=== PATIENT | male | born 1935 | race Caucasian/White ===

== ENCOUNTER → 2017-07-18 | Outpatient (CLI) | payer MEDICARE ==
--- NOTE | 2017-07-19 16:07 | Diagnostic Imaging Report ---
Examination: MRI SPINE LUMBAR WITHOUT CONTRAST History: Low back pain with leg weakness for the past year. Comparison studies: None Technique: Sagittal, coronal and axial T2 , sagittal T1 and STIR; axial spin density oblique. Findings: Number of lumbar vertebral bodies: Five. Alignment: Straightening of normal lordosis. No scoliosis. Soft tissues: No T2 hyperintense inflammatory changes. Posterior paraspinal soft tissues and muscles: No abnormality. Lower thoracic cord: Normal in signal and morphology. The tip of the conus is at T12. Cauda equina: No masses. No arachnoiditis. Vertebrae: No fractures, infection or neoplasm. Degenerative changes: T12-L1: Asymmetric to the left disc bulge. No foraminal or canal stenosis. L1-L2: Mild diffuse bulge and mild ligamentum flavum thickening. No foraminal or canal stenosis. L2-L3: Mild diffuse disc bulge and mild facet arthropathy. No foraminal or canal stenosis. L3-L4: Diffuse disc bulge and mild facet arthropathy result in moderate bilateral neural foraminal narrowing and mild canal stenosis. L4-L5: Diffuse disc bulge, mild bilateral facet arthropathy and mild ligamentum flavum thickening result in mild bilateral neural foraminal narrowing. No canal stenosis. L5-S1: Diffuse disc bulge and mild bilateral facet arthropathy result in mild bilateral neural foraminal narrowing. No canal stenosis. IMPRESSION: 1. 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 2. Moderate bilateral neural foraminal narrowing at L3-L4. Signed by: Dr. Cassie Ames M.D. on 07/19/2017 4:03 PM
== END ==
LOC: MRI 09:08
PROVIDERS: ATTEND Family Medicine
DX: M54.5 Low back pain (principal)
CPT/HCPCS: 72148

== ENCOUNTER → 2017-08-14 | Day surgery (SDC) | payer MEDICARE ==
[2017-08-12 11:50] LABS: BASOPHILS % 0.3 % (0.0-1.0); EOSINOPHILS # (AUTO) 0.1 (0.0-0.4); EOSINOPHILS % 1.5 % (0.0-6.0); HEMATOCRIT 28.9 % (38.2-49.6); HEMOGLOBIN 9.1 g/dL (14.0-18.0); LYMPHOCYTES # (AUTO) 1.3 (1.0-3.2); LYMPHOCYTES % 19.9 % (18.0-39.1); MEAN CORPUSCULAR HEMOGLOBIN 26.3 pg (28-32); MEAN CORPUSCULAR HGB CONC 31.5 g/dL (31-35); MEAN CORPUSCULAR VOLUME 83.5 fL (81-99); MONOCYTES # (AUTO) 0.7 (0.2-0.8); MONOCYTES % 11.2 % (4.4-11.3); NEUTROPHILS # (AUTO) 4.4 (2.1-6.9); NEUTROPHILS % 66.8 % (38.7-80.0); PLATELET COUNT 218 x10e3/uL (140-360); RED BLOOD COUNT 3.46 x10e6/uL (4.3-5.7); RED CELL DISTRIBUTION WIDTH 19.8 % (11.7-14.4)
[~2017-08-14] MED LIST: AMITIZA24 MCG PO; DOXAZOSIN MESYLA2 MG PO; INHALER INH; LEVOTHYROXINE112 MCG PO; LIDOCAINE HCL 2% LOCAL INJ 5 ML SDV VIAL INJ ONE; NEXIUM40 MG PO; NORCO 10-325 T1 EACH PO; PROPOFOL IV EMULSION 10 MG/ML 20 ML VIAL ONE; SERTRALINE HCL50 MG PO; SPIRIVA18 MCG INH; TIMOPTIC 0.5%1 EACH OP/OT; TRAVATAN Z5 ML OD; ZOFRAN ODT4 MG PO
== END | disposition home or self-care (01) ==
LOC: OR 09:47
PROVIDERS: ATTEND Internal Medicine Gastroenterology
DX: D64.9 Anemia, unspecified (principal); Z85.038 Personal history of other malignant neoplasm of large intestine; K31.819 Angiodysplasia of stomach and duodenum without bleeding; K44.9 Diaphragmatic hernia without obstruction or gangrene; K21.9 Gastro-esophageal reflux disease without esophagitis; K59.00 Constipation, unspecified; I10 Essential (primary) hypertension; J44.9 Chronic obstructive pulmonary disease, unspecified; E03.9 Hypothyroidism, unspecified; H40.9 Unspecified glaucoma; M06.9 Rheumatoid arthritis, unspecified; F32.9 Major depressive disorder, single episode, unspecified; Z01.810 Encounter for preprocedural cardiovascular examination; Z01.812 Encounter for preprocedural laboratory examination; Z85.46 Personal history of malignant neoplasm of prostate; Z85.828 Personal history of other malignant neoplasm of skin; Z87.891 Personal history of nicotine dependence; Z83.71 Family history of colonic polyps
CPT/HCPCS: 36415; 43255; 85025; 93005; J2001; 43270

== ENCOUNTER → 2017-10-02 | Day surgery (SDC) | payer MEDICARE ==
[~2017-10-02] MED LIST changes: +FENTANYL CITRATE/PF 100MCG/2 ML INJ ONE; +PHENERGAN25 MG/1 M1 PO
[2017-10-02 09:33] LABS: BASOPHILS # (AUTO) 0.1 (0.0-0.1); BASOPHILS % 0.8 % (0.0-1.0); EOSINOPHILS # (AUTO) 0.2 (0.0-0.4); HEMATOCRIT 33.2 % (38.2-49.6); HEMOGLOBIN 10.2 g/dL (14.0-18.0); LYMPHOCYTES # (AUTO) 1.9 (1.0-3.2); LYMPHOCYTES % 29.1 % (18.0-39.1); MEAN CORPUSCULAR HEMOGLOBIN 25.4 pg (28-32); MEAN CORPUSCULAR HGB CONC 30.7 g/dL (31-35); MEAN CORPUSCULAR VOLUME 82.8 fL (81-99); MONOCYTES # (AUTO) 0.5 (0.2-0.8); NEUTROPHILS # (AUTO) 3.9 (2.1-6.9); NEUTROPHILS % 58.9 % (38.7-80.0); PLATELET COUNT 298 x10e3/uL (140-360); RED BLOOD COUNT 4.01 x10e6/uL (4.3-5.7); RED CELL DISTRIBUTION WIDTH 18.2 % (11.7-14.4)
--- OUTSIDE RECORDS SUMMARY | 2017-10-02 09:45 | XMS REPORT ---
[facility] Address Unknown Phone Unavailable Care Team Providers Care [employer] Supervisor Name Role Phone AB MARK Unavailable Unavailable Problems This patient has no known problems. Allergies, Adverse Reactions, Alerts This patient has no known allergies or adverse reactions. Medications This patient has no known medications. Results Test Description Test Time Test Comments Text Results Atomic Results Result Comments MRI SPINE LUMBAR WO [place] [address] Patient Name: Luz Elena KENNY MR #: [id number] : 1935 Age/Sex: 82/M Req # : [id number] Adm Physician: Ordered by: BA MARK MD Report #: [id number] Location: MRI Room/Bed: Procedure: [id number] MRI/MRI SPINE LUMBAR WO Exam Date: 07/18/17 Exam Time: 0950 REPORT STATUS: Signed Examination: MRI SPINE LUMBAR WITHOUT CONTRAST History: Low back pain with leg weakness for the past year. Comparison studies: None Technique: Sagittal, coronal and axial T2 , sagittal T1 and STIR; axial spin density oblique. Findings: Number of lumbar vertebral bodies: Five. Alignment: Straightening of normal lordosis. No scoliosis. Soft tissues: No T2 hyperintense inflammatory changes. Posterior paraspinal soft tissues and muscles: No abnormality. Lower thoracic cord: Normal in signal and morphology. The tip of the conus is at T12. Cauda equina: No masses. No arachnoiditis. Vertebrae: No fractures, infection or neoplasm. Degenerative changes: T12-L1: Asymmetric to the left disc bulge. No foraminal or canal stenosis. L1-L2 : Mild diffuse bulge and mild ligamentum flavum thickening. No foraminal or canal stenosis. L2-L3: Mild diffuse disc bulge and mild facet arthropathy. No foraminal or canal stenosis. L3-L4: Diffuse disc bulge and mild facet arthropathy result in moderate bilateral neural foraminal narrowing and mild canal stenosis. L4-L5: Diffuse disc bulge, mild bilateral facet arthropathy and mild ligamentum flavum thickening result in mild bilateral neural foraminal narrowing. No canal stenosis. L5-S1: Diffuse disc bulge and mild bilateral facet arthropathy result in mild bilateral neural foraminal narrowing. No canal stenosis. IMPRESSION: 1. 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 2. Moderate bilateral neural foraminal narrowing at L3-L4. Signed by: Dr. Cassie Christian M.D. on 07/19/2017 4:03 PM Dictated By: CASSIE KIMBALL MD [id number] Transcribed By: PAT on 07/19/17 1601 COPY TO: AB MARK MD
== END | disposition home or self-care (01) ==
LOC: OR 09:42
PROVIDERS: ATTEND Internal Medicine Gastroenterology
DX: K31.819 Angiodysplasia of stomach and duodenum without bleeding (principal); Z85.038 Personal history of other malignant neoplasm of large intestine; K21.9 Gastro-esophageal reflux disease without esophagitis; K44.9 Diaphragmatic hernia without obstruction or gangrene; D64.9 Anemia, unspecified; J44.9 Chronic obstructive pulmonary disease, unspecified; I10 Essential (primary) hypertension; H91.90 Unspecified hearing loss, unspecified ear; M19.90 Unspecified osteoarthritis, unspecified site; E78.5 Hyperlipidemia, unspecified; E03.9 Hypothyroidism, unspecified; F32.9 Major depressive disorder, single episode, unspecified; Z01.810 Encounter for preprocedural cardiovascular examination; Z85.46 Personal history of malignant neoplasm of prostate; Z85.828 Personal history of other malignant neoplasm of skin; Z87.891 Personal history of nicotine dependence
CPT/HCPCS: 36415; 43255; 85025; 93005; J2001; 43270

== ENCOUNTER → 2017-11-27 | Day surgery (SDC) | payer MEDICARE ==
[~2017-11-27] MED LIST changes: -FENTANYL CITRATE/PF 100MCG/2 ML INJ ONE; -LIDOCAINE HCL 2% LOCAL INJ 5 ML SDV VIAL INJ ONE; -PROPOFOL IV EMULSION 10 MG/ML 20 ML VIAL ONE; +TRAVATAN Z5 ML OP; +ZANTAC300 MG PO
== END | disposition home or self-care (01) ==
LOC: OR 09:16
PROVIDERS: ATTEND Internal Medicine Gastroenterology
DX: K31.819 Angiodysplasia of stomach and duodenum without bleeding (principal); K44.9 Diaphragmatic hernia without obstruction or gangrene
CPT/HCPCS: 43239; 88305

== ENCOUNTER → 2018-02-05 | Day surgery (SDC) | payer MEDICARE ==
[~2018-02-05] MED LIST changes: +FENTANYL CITRATE/PF 100MCG/2 ML INJ ONE; +IRON INFUSION IV; +LIDOCAINE HCL 2% LOCAL INJ 5 ML SDV VIAL INJ ONE; +PROPOFOL IV EMULSION 10 MG/ML 20 ML VIAL ONE; +REGLAN10 MG PO
== END | disposition home or self-care (01) ==
LOC: OR 08:58
PROVIDERS: ATTEND Internal Medicine Gastroenterology
DX: D50.0 Iron deficiency anemia secondary to blood loss (chronic) (principal); Z85.038 Personal history of other malignant neoplasm of large intestine; K31.819 Angiodysplasia of stomach and duodenum without bleeding; K21.0 Gastro-esophageal reflux disease with esophagitis; K22.70 Barrett's esophagus without dysplasia; K44.9 Diaphragmatic hernia without obstruction or gangrene; K59.00 Constipation, unspecified; I10 Essential (primary) hypertension; Z01.810 Encounter for preprocedural cardiovascular examination
CPT/HCPCS: 43255; 93005; J2001; 43270

== ENCOUNTER → 2018-05-21 | Day surgery (SDC) | payer MEDICARE ==
[~2018-05-21] MED LIST changes: -FENTANYL CITRATE/PF 100MCG/2 ML INJ ONE; -LIDOCAINE HCL 2% LOCAL INJ 5 ML SDV VIAL INJ ONE
[2018-05-21 12:20] VITALS: BP 139/78
== END | disposition home or self-care (01) ==
LOC: OR 09:10
PROVIDERS: ATTEND Internal Medicine Gastroenterology
DX: D64.9 Anemia, unspecified (principal); Z85.038 Personal history of other malignant neoplasm of large intestine; K31.819 Angiodysplasia of stomach and duodenum without bleeding; K22.70 Barrett's esophagus without dysplasia; K44.9 Diaphragmatic hernia without obstruction or gangrene; K21.9 Gastro-esophageal reflux disease without esophagitis; K58.9 Irritable bowel syndrome, unspecified; Z71.3 Dietary counseling and surveillance; C61 Malignant neoplasm of prostate; I10 Essential (primary) hypertension; J44.9 Chronic obstructive pulmonary disease, unspecified; M06.9 Rheumatoid arthritis, unspecified; F32.9 Major depressive disorder, single episode, unspecified; F41.9 Anxiety disorder, unspecified; Z01.810 Encounter for preprocedural cardiovascular examination; Z87.891 Personal history of nicotine dependence
CPT/HCPCS: 43255; 93005